=== PATIENT | male | born 1945 | race Caucasian/White ===

== ENCOUNTER 2021-04-18 09:48 | Outpatient (CLI) | payer MEDICARE ==
[2021-04-18 11:18] LABS: #Eosinphils 0.2 10x3/uL (0.0-0.5); #Monocytes 0.5 10x3/uL (0.0-1.1); %Basophils 0.6 % (0.0-2.0); %Eosinophils 2.9 % (0.0-6.0); %Lymphocytes 28.3 % (18.0-47.0); Hemoglobin 14.7 g/dL (13.5-17.5); Mean Corpuscular HGB CONC 32.6 g/dL (32.0-36.0); Mean Corpuscular Hemoglobin 28.3 pg (27.0-33.0); Mean Corpuscular Volume 86.9 fl (81.2-95.1); Mean Platelet Volume 10.2 fl (7.4-10.4); Platelet Count 253 10x3/uL (150-450); RBC Distribution Width 14.3 % (11.5-14.5); Red Blood Cell (RBC) Count 5.19 10x6/uL (4.32-5.72); White Blood Cell (WBC) Count 6.6 10x3/uL (3.5-10.5)
[2021-04-18 11:42] LABS: Prothrombin Time 11.5 sec (9.5-12.1)
[2021-04-18 12:12] LABS: Anion Gap 15 mmol/L (10-20); BUN (Urea Nitrogen) 16 mg/dL (8.4-25.7); Calc. Creatinine Clearance 0 mL/min (70-130); Carbon Dioxide 24 mmol/L (23-31); Chloride 105 mmol/L (98-107); Glucose 126 mg/dL (83-110); Potassium 4.5 mmol/L (3.5-5.1); Sodium 139 mmol/L (136-145)
[2021-04-18 23:07] LABS: SARS-CoV-2 PCR by NAA Not Detected (NotDetected)
== END 2021-04-18 09:49 | disposition home or self-care (01) ==
LOC: LABBT 09:48
PROVIDERS: ATTEND Orthopaedic Surgery
DX: Z01.812 Encounter for preprocedural laboratory examination (principal); M17.32 Unilateral post-traumatic osteoarthritis, left knee; Z20.822 Contact with and (suspected) exposure to COVID-19
CPT/HCPCS: 80048; 85025; 85610; 87081; U0003; U0005

== ENCOUNTER 2021-04-18 12:00 | Inpatient (IN) | payer MEDICARE ==
[2021-04-17 12:50] VITALS: BMI 39.5
[2021-04-23] MEDS ORDERED: Sodium Chloride 0.9% 100 ML ONE (05:47)
[2021-04-23] MEDS ORDERED: Tranexamic Acid 1,000 MG/10 ML VIAL ONE (05:47)
[2021-04-23] MEDS ORDERED: Clindamycin/D5W 600 MG in Premix Bag 1 BAG IVPB SCH (06:00)
[2021-04-23] MEDS ORDERED: VANCOMYCIN 2 GRAM/400 ML BAG 2 GM in Premix Bag 1 BAG IVPB SCH ×2 (06:00→18:00)
[2021-04-23] MEDS ORDERED: Fentanyl 250 MCG/5 ML VIAL ONE ×2 (06:24→09:32)
[2021-04-23] MEDS ORDERED: Midazolam HCl 2 mg/2 ml Vial ONE (06:37)
[2021-04-23] MEDS ORDERED: Lidocaine 1% (PF) 30 ML VIAL ONE (06:37)
[2021-04-23] MEDS ORDERED: Ondansetron PF 4 MG/2 ML Vial IVP PRN ×2 (06:49→07:15)
[2021-04-23] MEDS ORDERED: Promethazine HCl 25 MG/ML VIAL IM PRN ×2 (06:49→07:15)
[2021-04-23] MEDS ORDERED: Zolpidem Tartrate 5 MG TAB PO PRN ×2 (06:49→07:15)
[2021-04-23] MEDS ORDERED: Ketorolac Tromethamine 30 MG/ML VIAL IVP PRN (06:49)
[2021-04-23] MEDS ORDERED: diphenhydrAMINE 25 MG CAP PO PRN (06:49)
[2021-04-23] MEDS ORDERED: Clindamycin/D5W 900 mg/50 ml Premix Bag ONE (06:50)
[2021-04-23] MEDS ORDERED: Levofloxacin 500 mg/D5W 100 ml Premix Bag ONE (06:50)
[2021-04-23] MEDS ORDERED: Bupivacaine 0.25% HCL 30 ML VIAL ONE (06:50)
[2021-04-23] MEDS ORDERED: Clindamycin/D5W 600 mg/50 ml Premix Bag ONE (06:52)
[2021-04-23] MEDS ORDERED: Fentanyl 100 MCG/2 ML VIAL IV PRN (07:03)
[2021-04-23] MEDS ORDERED: Ketorolac Tromethamine 30 MG/ML VIAL ONE ×2 (07:07→09:14)
[2021-04-23] MEDS ORDERED: ePHEDrine 50 MG/ML VIAL ONE (07:07)
[2021-04-23] MEDS ORDERED: Bupivacaine HCl 0.5%/Epinephrine 1:200,000/PF 30 ml Vial ONE (07:07)
[2021-04-23] MEDS ORDERED: Ondansetron PF 4 MG/2 ML Vial ONE (07:07)
[2021-04-23] MEDS ORDERED: PROPOFOL 200 MG/20 ML VIAL ONE (07:07)
[2021-04-23] MEDS ORDERED: Lidocaine 1% PF 5 ML VIAL ONE (07:07)
[2021-04-23] MEDS ORDERED: traMADol HCl 50 MG TAB PO PRN ×2 (07:15)
[2021-04-23] MEDS ORDERED: Ropivacaine 0.2% 550 ML 550 ML NERVE BLCK SCH (07:15)
[2021-04-23] MEDS ORDERED: HYDROcodone/Acetaminophen 10/325 mg Tablet PO PRN ×2 (07:15)
[2021-04-23] MEDS ORDERED: Multivitamin W/ Minerals 1 TAB PO SCH (09:00)
[2021-04-23] MEDS ORDERED: Dextrose 50% Abboject 50 ML SYRINGE SLOW IVP PRN (10:44)
[2021-04-23] MEDS ORDERED: HumaLOG 300 UNITS/3 ML VIAL SC PRN ×2 (10:44)
[2021-04-23] MEDS ORDERED: Dextrose 5% in Water 1,000 ML IV PRN (10:44)
[2021-04-23] MEDS: Ketorolac Tromethamine 30 MG/ML VIAL IVP SCH ×2 (14:10→17:48)
[2021-04-23] MEDS: Sodium Chloride 0.9% 1,000 ML IV SCH ×2 (14:10→16:31)
[2021-04-23] MEDS: Clindamycin/D5W 900 MG in Premix Bag 1 BAG IVPB SCH ×2 (14:11→17:45)
[2021-04-23] MEDS: Aspirin 81 mg Enteric Coated Tablet PO SCH ×2 (14:21→20:54)
[2021-04-23] MEDS: Ferrous Gluconate 324 MG TAB PO SCH ×2 (16:30→20:54)
[2021-04-23] MEDS: Senokot S 8.6-50 MG TAB PO SCH ×2 (16:30→20:54)
[2021-04-23] MEDS: Atorvastatin Calcium 20 MG TAB PO SCH (20:55)
[2021-04-24] MEDS: Ketorolac Tromethamine 30 MG/ML VIAL IVP SCH ×4 (00:14→18:08)
[2021-04-24] MEDS: Sodium Chloride 0.9% 1,000 ML IV SCH ×2 (04:32→14:53)
[2021-04-24 05:25] LABS: Hemoglobin 12.8 g/dL (14.0-18.0); Mean Corpuscular HGB CONC 32.8 g/dL (32.0-36.0); Mean Corpuscular Hemoglobin 29.5 pg (27.0-31.0); Mean Corpuscular Volume 89.9 fL (78.0-98.0); Mean Platelet Volume 7.8 fL (7.4-10.4); Platelet Count 180 thou/uL (130-400); RBC Distribution Width 13.6 % (11.5-14.5); Red Blood Cell (RBC) Count 4.33 mill/uL (4.70-6.10); White Blood Cell (WBC) Count 7.6 thou/uL (4.8-10.8)
[2021-04-24 05:28] LABS: #Eosinphils 0.2 thou/uL (0.0-0.7); #Lymphocytes 1.1 thou/uL (1.20-3.40); #Monocytes 0.8 thou/uL (0.11-0.59); #Neutrophils 5.6 thou/uL (1.40-6.50); %Basophils 0.1 % (0.0-1.0); %Eosinophils 2.3 % (0.0-10.0); %Lymphocytes 14.8 % (21.0-51.0); %Monocytes 10.2 % (0.0-10.0); %Neutrophils 72.6 % (42.0-75.0); Hemoglobin 12.7 g/dL (14.0-18.0); Mean Corpuscular HGB CONC 32.9 g/dL (32.0-36.0); Mean Corpuscular Hemoglobin 29.6 pg (27.0-31.0); Mean Corpuscular Volume 89.9 fL (78.0-98.0); Mean Platelet Volume 7.6 fL (7.4-10.4); Platelet Count 190 thou/uL (130-400); RBC Distribution Width 13.8 % (11.5-14.5); Red Blood Cell (RBC) Count 4.29 mill/uL (4.70-6.10); White Blood Cell (WBC) Count 7.7 thou/uL (4.8-10.8)
[2021-04-24 05:49] LABS: Anion Gap 16 mmol/L (10-20); BUN (Urea Nitrogen) 18 mg/dL (8.4-25.7); Calc. Creatinine Clearance 135 mL/min (70-130); Carbon Dioxide 20 mmol/L (23-31); Chloride 103 mmol/L (98-107); Glucose 127 mg/dL (83-110); Potassium 4.4 mmol/L (3.5-5.1); Sodium 135 mmol/L (136-145)
[2021-04-24] MEDS ORDERED: glipiZIDE 5 MG TAB PO SCH (07:30)
[2021-04-24] MEDS: Cholecalciferol 1,000 UNITS (25 MCG) TAB PO SCH (08:37)
[2021-04-24] MEDS: Lisinopril 5 MG TAB PO SCH ×2 (08:37→12:34)
[2021-04-24] MEDS: Aspirin 81 mg Enteric Coated Tablet PO SCH ×2 (08:37→20:02)
[2021-04-24] MEDS: Senokot S 8.6-50 MG TAB PO SCH ×2 (08:37→20:03)
[2021-04-24] MEDS: Multivit, Therapeutic 1 TAB PO SCH (08:37)
[2021-04-24] MEDS: Ferrous Gluconate 324 MG TAB PO SCH ×2 (08:37→20:03)
[2021-04-24] MEDS ORDERED: Lisinopril 5 MG TAB PO SCH (09:00)
[2021-04-24] MEDS: Acetaminophen 325 MG TAB PO PRN (12:34)
[2021-04-24] MEDS: Atorvastatin Calcium 20 MG TAB PO SCH (20:02)
[2021-04-25] MEDS: Sodium Chloride 0.9% 1,000 ML IV SCH ×2 (00:04→10:09)
[2021-04-25] MEDS: Ketorolac Tromethamine 30 MG/ML VIAL IVP SCH ×2 (00:08→05:00)
[2021-04-25 05:17] LABS: Hemoglobin 12.2 g/dL (14.0-18.0); Mean Corpuscular HGB CONC 33.4 g/dL (32.0-36.0); Mean Corpuscular Hemoglobin 29.9 pg (27.0-31.0); Mean Corpuscular Volume 89.5 fL (78.0-98.0); Mean Platelet Volume 7.4 fL (7.4-10.4); Platelet Count 155 thou/uL (130-400); RBC Distribution Width 13.6 % (11.5-14.5); Red Blood Cell (RBC) Count 4.07 mill/uL (4.70-6.10); White Blood Cell (WBC) Count 7.4 thou/uL (4.8-10.8)
[2021-04-25] MEDS: Senokot S 8.6-50 MG TAB PO SCH (08:29)
[2021-04-25] MEDS: Acetaminophen 325 MG TAB PO PRN (08:30)
[2021-04-25] MEDS: Aspirin 81 mg Enteric Coated Tablet PO SCH (08:30)
[2021-04-25] MEDS: Cholecalciferol 1,000 UNITS (25 MCG) TAB PO SCH (08:30)
[2021-04-25] MEDS: Lisinopril 5 MG TAB PO SCH (08:30)
[2021-04-25] MEDS: Ferrous Gluconate 324 MG TAB PO SCH (08:31)
[2021-04-25] MEDS: Multivit, Therapeutic 1 TAB PO SCH (08:31)
[2021-04-25 12:00] VITALS: BP 138/79; TEMP 98.2
== END 2021-04-25 13:30 | disposition home health service (06) | DRG 470 ==
LOC: SURG A 04-23 05:21 → SJJU 04-23 10:13
PROVIDERS: ADMIT Orthopaedic Surgery; ATTEND Orthopaedic Surgery
PROC: 0SRD0J9 Replacement of Left Knee Joint with Synthetic Substitute, Cemented, Open Approach (ICD-10-PCS; principal; 2021-04-23)
DX: M17.12 Unilateral primary osteoarthritis, left knee (principal); E11.9 Type 2 diabetes mellitus without complications; I10 Essential (primary) hypertension; E78.5 Hyperlipidemia, unspecified; Z79.899 Other long term (current) drug therapy; Z90.49 Acquired absence of other specified parts of digestive tract; Z88.0 Allergy status to penicillin
CPT/HCPCS: 36415; 36416; 80048; 85027; A4306; C1713; C1776; J1885; J1956; J2001; J2250; J2405; J2704; J2795; J3010; J3370; J3490; J7050; S0020

== ENCOUNTER 2022-04-16 10:17 | Outpatient (CLI) | payer MEDICARE ==
[2022-04-16 12:43] LABS: #Basophils 0.1 10x3/uL (0.0-0.2); #Eosinphils 0.3 10x3/uL (0.0-0.5); #Monocytes 0.6 10x3/uL (0.0-1.1); #Neutrophils 4.5 10x3/uL (1.5-8.4); %Basophils 0.7 % (0.0-2.0); %Eosinophils 3.6 % (0.0-6.0); %Lymphocytes 25.9 % (18.0-47.0); %Monocytes 7.6 % (0.0-10.0); %Neutrophils 61.9 % (40.0-75.0); Hemoglobin 14.9 g/dL (13.5-17.5); Mean Corpuscular HGB CONC 33.5 g/dL (32.0-36.0); Mean Corpuscular Hemoglobin 28.7 pg (27.0-33.0); Mean Corpuscular Volume 85.6 fl (81.2-95.1); Mean Platelet Volume 10.8 fl (7.4-10.4); Platelet Count 242 10x3/uL (150-450); RBC Distribution Width 13.5 % (11.5-14.5); White Blood Cell (WBC) Count 7.2 10x3/uL (3.5-10.5)
== END 2022-04-16 10:18 | disposition home or self-care (01) ==
LOC: LABBT 10:17
PROVIDERS: ATTEND Orthopaedic Surgery Hand Surgery
DX: Z01.818 Encounter for other preprocedural examination (principal); D17.79 Benign lipomatous neoplasm of other sites
CPT/HCPCS: 85025; 93005; 93010

== ENCOUNTER 2022-04-18 06:31 | Day surgery (SDC) | payer MEDICARE ==
[2022-04-16 14:22] VITALS: BMI 39.5
[2022-04-18] MEDS ORDERED: VANCOMYCIN 2 GRAM/500 ML BAG 2 GM in Premix Bag 1 BAG IVPB SCH (07:15)
[2022-04-18] MEDS ORDERED: Bacitracin Zinc Ointment 30 gm TUBE ONE (07:53)
[2022-04-18] MEDS ORDERED: Neomycin-Polymyxin 1 ML AMP ONE (07:53)
[2022-04-18] MEDS ORDERED: Bupivacaine PF 0.5% 30 ML VIAL ONE (07:53)
[2022-04-18] MEDS ORDERED: fentaNYL PF 100 MCG/2 ML SYRINGE ONE (08:54)
[2022-04-18] MEDS ORDERED: Ketorolac Tromethamine 30 MG/ML VIAL ONE (09:12)
[2022-04-18] MEDS ORDERED: Lidocaine 1% PF 5 ML VIAL ONE (09:12)
[2022-04-18] MEDS ORDERED: Glycopyrrolate 0.2 MG/ML 5 ML SYRINGE ONE (09:12)
[2022-04-18] MEDS ORDERED: Dexamethasone 20 MG/5 ML VIAL ONE (09:12)
[2022-04-18] MEDS ORDERED: PROPOFOL 200 MG/20 ML VIAL ONE (09:12)
[2022-04-18] MEDS ORDERED: Ondansetron PF 4 MG/2 ML Vial ONE (09:12)
== END 2022-04-18 12:02 | disposition home or self-care (01) ==
LOC: SDC 06:31
PROVIDERS: ATTEND Orthopaedic Surgery Hand Surgery
PROC: 0JBK0ZZ Excision of Left Hand Subcutaneous Tissue and Fascia, Open Approach (ICD-10-PCS; principal; 2022-04-18)
DX: D21.12 Benign neoplasm of connective and other soft tissue of left upper limb, including shoulder (principal); E78.5 Hyperlipidemia, unspecified; Z79.1 Long term (current) use of non-steroidal anti-inflammatories (NSAID); Z79.899 Other long term (current) drug therapy; Z88.0 Allergy status to penicillin; Z96.652 Presence of left artificial knee joint
CPT/HCPCS: 26111; J3370; 88305; J1100; J1885; J2405; J2704; J7030; S0020